=== PATIENT | female | born 1990 | race Caucasian/White ===

== ENCOUNTER 2018-03-21 10:35 | Day surgery (SDC) | payer BC ==
[2018-03-19 11:45] LABS: BASOPHILS % (AUTO) 0.2 % (0-1); EOSINOPHILS # (AUTO) 0.6 X10'3 (0-0.9); EOSINOPHILS % (AUTO) 6.7 % (0-6); LYMPHOCYTES # (AUTO) 1.6 X10'3 (1.1-4.8); LYMPHOCYTES % (AUTO) 17.9 % (21-51); MEAN CORPUSCULAR HEMOGLOBIN 27.5 PG (27.0-31.0); MEAN CORPUSCULAR HGB CONC 33.9 % (33.0-36.5); MEAN CORPUSCULAR VOLUME 81.3 FL (78-98); MEAN PLATELET VOLUME 8.8 FL (7.4-10.4); MONOCYTES # (AUTO) 0.5 X10'3 (0-0.9); MONOCYTES % (AUTO) 5.5 % (2-12); NEUTROPHILS # (AUTO) 6.2 X10'3 (1.8-7.7); NEUTROPHILS % (AUTO) 69.7 % (42-75); PRE OP HEMATOCRIT 40.8 % (35.0-45.0); PRE OP HEMOGLOBIN 13.8 g/dL (12.0-16.0); PRE OP PLATELET COUNT 249 X10'3 (140-440); RED BLOOD COUNT 5.01 X10'6 (4.20-5.60); RED CELL DISTRIBUTION WIDTH 14.3 % (11.5-14.5)
[2018-03-19 11:59] LABS: ALBUMIN 3.8 G/DL (3.4-5.0); ALKALINE PHOSPHATASE 62 IU/L (46-116); BLOOD UREA NITROGEN 14 MG/DL (7-18); BUN/CREATININE RATIO 15.9 (6.6-38.0); CALCIUM 8.9 MG/DL (8.5-10.1); CHLORIDE 104 MMOL/L (99-107); CREATININE 0.88 MG/DL (0.40-0.90); PRE OP ALT 20 U/L (30-65); PRE OP ANION GAP 6 (8-16); PRE OP AST 16 U/L (10-37); PRE OP BILIRUB, TOTAL 0.5 MG/DL (0.0-1.0); PRE OP GLUCOSE 88 MG/DL (70-104); PRE OP POTASSIUM 4.1 MMOL/L (3.4-5.1); PRE OP SODIUM 137 MMOL/L (135-145); TOTAL CARBON DIOXIDE 26.7 MMOL/L (24-32); TOTAL PROTEIN 7.5 G/DL (6.4-8.2); eGFR 77 ML/MIN
[2018-03-19 12:22] LABS: HCG SERUM QL NEGATIVE
[~2018-03-21] VITALS: Ht 167.6 cm; Wt 98.9 kg
[2018-03-21] VITALS (8 sets, daily range): BP systolic 103–129; BP diastolic 58–86
[~2018-03-21 10:35] MED LIST: LEVO125T68 PO; famotidine 20mg tablet PO ONE; ringers solution, lacted 1,000 ML IV SCH
[2018-03-21] MEDS ORDERED: BUPIVAcaine/PF 2.5mg/ml (0.25%) 10ml vial ONE (14:28)
[2018-03-21] MEDS ORDERED: ROPIVAcaine 0.5% (5mg/ml) 30ml vial ONE (14:47)
[2018-03-21] MEDS ORDERED: ondansetron/PF 4mg/2ml inj ONE (14:52)
[2018-03-21] MEDS ORDERED: glycopyrrolate 0.2mg/ml inj ONE (14:52)
[2018-03-21] MEDS ORDERED: neostigmine methylsulfate 1 MG/ML 10ml vial ONE (14:52)
[2018-03-21] MEDS ORDERED: sevoflurane 250ml liquid IH ONE (14:52)
[2018-03-21] MEDS ORDERED: fentaNYL/PF 50MCG/1 ML 2ML syringe ONE (15:00)
[2018-03-21] MEDS ORDERED: midazolam 2 mg/2 ml injection ONE (15:01)
[2018-03-21] MEDS ORDERED: rocuronium 10mg/ml inj IV ONE (15:02)
[2018-03-21] MEDS ORDERED: propofol inj 20 ML IV ONE (15:02)
[2018-03-21] MEDS ORDERED: LIDOcaine 1%/PF 5ML 10 MG/ML VIAL ONE (15:02)
[2018-03-21] MEDS ORDERED: ringers solution, lacted 1,000 ML IV SCH (15:31)
[2018-03-21] MEDS ORDERED: morphine 4 MG/ML inj SYRINge IV PRN ×2 (15:35)
[2018-03-21] MEDS ORDERED: proCHLORperazine 10 MG/2 ml inj IV PRN (15:35)
[2018-03-21] MEDS ORDERED: meperidine/PF 25mg/ml syringe IV PRN ×2 (15:35)
[2018-03-21] MEDS ORDERED: ondansetron/PF 4mg/2ml inj IV PRN (15:35)
[2018-03-21] MEDS ORDERED: dexamethasone sod phosphate 4mg/ml inj. ONE (15:54)
[2018-03-21] MEDS ORDERED: ketorolac trometh. 30mg/ml inj. ONE (15:54)
[2018-03-21] MEDS: meperidine/PF 25mg/ml syringe IV PRN ×2 (16:13→16:25)
== END 2018-03-21 17:10 | disposition home or self-care (01) ==
LOC: PAS 10:35
PROVIDERS: ATTEND Obstetrics & Gynecology
DX: D27.0 Benign neoplasm of right ovary (principal); N83.8 Other noninflammatory disorders of ovary, fallopian tube and broad ligament; E03.9 Hypothyroidism, unspecified; E66.01 Morbid (severe) obesity due to excess calories; Z68.35 Body mass index [BMI] 35.0-35.9, adult; Z79.899 Other long term (current) drug therapy; Z82.3 Family history of stroke; Z82.49 Family history of ischemic heart disease and other diseases of the circulatory system; Z83.3 Family history of diabetes mellitus; Z83.6 Family history of other diseases of the respiratory system
CPT/HCPCS: 36415; 58661; 80053; 84703; 85025; 86885; 86900; 86901; J1100; J1885; J2001; J2175; J2250; J2405; J2704; J2710; J2795; J3010; J3490; J7120; A6250; A7000